=== PATIENT | male | born 1960 | race Caucasian/White ===

== ENCOUNTER 2021-04-24 18:01 | Emergency (ER) | payer MEDICAID ==
[~2021-04-24] VITALS: Ht 170.2 cm; Wt 90.7 kg
--- NOTE | 2021-04-24 18:25 | NUR ---
ELLYN Kyra FROM THE STREET C/O UNWITNESSED SYNCOPAL EPISODE."FOUND HIM IN THE CAR UNRESPONSIVE". NO S/O ANY ACUTE DISTRESS NOTED. DENIES PAIN at this time. PATIENT KEPT COMFORTABLE. SAFETY PRECAUTIONS IN PLACE. WILL CONTINUE TO MONITOR
[2021-04-24] MEDS ORDERED: KETOROLAC TROMETHAMINE INJ 30 MG/ML VIAL IV ONE (18:30)
[2021-04-24] MEDS ORDERED: IV NS 0.9% 1,000 ML BAG IV ONE (18:30)
[2021-04-24] MEDS ORDERED: ACETAMINOPHEN ES 500 MG TABLET PO ONE (18:30)
[2021-04-24] MEDS ORDERED: ONDANSETRON HCL/PF 4 MG/2 ML VIAL IVP ONE (18:30)
[2021-04-24 18:47] LABS: ABG BASE EXCESS 1.9 mmol/L; ABG OXYGEN SATURATION 95.6 % (92.0-98.5); ABG PCO2 43.9 mmHg (35.0-45.0); ABG PH 7.407 (7.350-7.450); ABG PO2 78.1 mmHg (75.0-100.0); AaDO2 84.2 mmHg; MetHb 0.4 % (0.0-1.5); O2Hb 94.3 % (94.0-97.0); SITE, ABG Right Radial; VENT MODE, BG nasal cannula
[2021-04-24 18:56] LABS: BASOPHILS # (AUTO) 0.1 K/uL (0.0-0.2); BASOPHILS % (AUTO) 0.5 % (0.0-2.0); HEMATOCRIT 47 % (39-51); HEMOGLOBIN 15.2 g/dL (13.5-17.5); LYMPHOCYTES # (AUTO) 0.4 K/uL (0.8-4.8); LYMPHOCYTES % (AUTO) 1.6 % (20.0-44.0); MEAN CORPUSCULAR HGB CONC 32 g/dl (31.0-36.0); MEAN CORPUSCULAR VOLUME 87 fL (80-96); MONOCYTES # (AUTO) 0.5 K/uL (0.1-1.30); MONOCYTES % (AUTO) 2.3 % (2.0-12.0); NEUTROPHILS % (AUTO) 95.6 % (43.0-81.0); PLATELET COUNT (AUTO) 281 K/uL (150-450)
[2021-04-24] MEDS ORDERED: NALOXONE HCL 0.4 MG/ML AMPUL IV ONE (19:00)
[2021-04-24] MEDS ORDERED: NALOXONE PREFILLED SYRINGE 2 MG/2 ML SYRINGE ONE (19:03)
[2021-04-24] MEDS ORDERED: KETOROLAC TROMETHAMINE 15 MG/ML VIAL ONE (19:03)
[2021-04-24] MEDS ORDERED: ACETAMINOPHEN ES 500 MG TABLET ONE (19:03)
[2021-04-24] MEDS ORDERED: ONDANSETRON HCL/PF 4 MG/2 ML VIAL ONE (19:07)
[2021-04-24 19:21] LABS: CALCIUM, SERUM 8.8 mg/dL (8.5-10.1); CARBON DIOXIDE 27 mmol/L (21-32); CHLORIDE 104 mmol/L (98-107); GLUCOSE 118 mg/dL (74-106); POTASSIUM 3.8 mmol/L (3.5-5.1); SODIUM SERUM 142 mmol/L (136-145); UREA NITROGEN, BLOOD 14 mg/dL (7-18)
--- NOTE | 2021-04-24 19:24 | NUR ---
BLOOD SUGAR 111
--- NOTE | 2021-04-24 19:30 | NUR ---
URINE COLLECTED FOR [facility]A AT THIS TIME
--- NOTE | 2021-04-24 19:31 | NUR ---
LAB CALLED. LACTIC ACID IS 2.3
[2021-04-24 19:36] LABS: ACETAMINOPHEN < 2 ug/ml (10-30); ALANINE AMINOTRANSFERASE 37 U/L (12-78); ALBUMIN 3.7 g/dL (3.4-5.0); ALCOHOL, BLOOD < 3 mg/dL (0-0); ALKALINE PHOSPHATASE 113 U/L (46-116); ASPARTATE AMINOTRANSFERASE 25 U/L (15-37); BILIRUBIN,DIRECT 0.3 mg/dL (0.0-0.2); TOTAL PROTEIN, SERUM 8.4 g/dL (6.4-8.2)
--- NOTE | 2021-04-24 19:37 | NUR ---
COVID 19 SWAB COLLECTED
[2021-04-24 19:40] LABS: SERUM AMMONIA 25 umol/L (11-32)
[2021-04-24 19:51] LABS: D-DIMER 0.46 mg/L(FEU (0.17-0.50)
[2021-04-24 19:55] LABS: CREATINE KINASE, TOTAL 122 U/L (39-308); FERRITIN 127 ng/mL (8-388)
[2021-04-24 20:00] LABS: C-REACTIVE PROTEIN 8.3 mg/dL (0.0-0.9)
[2021-04-24 20:01] LABS: BILIRUBIN,URINE SMALL (NEGATIVE); COLOR,URINE YELLOW (YELLOW); LEUKOCYTE ESTERASE ,URINE Negative (NEGATIVE); NITRITE, URINE Negative (NEGATIVE); PH,URINE 5.5 (5.0-8.0); PROTEIN,URINE 30 mg/dl (NEGATIVE); UGLUCOSE Negative (NEGATIVE)
[2021-04-24 20:04] LABS: BACTERIA,URINE Rare /HPF (None Seen); RBC,URINE NONE SEEN /HPF (0-2); SQUAMOUS EPITHELIAL CELL,UR Few /HPF (None Seen); WBC,URINE NONE SEEN /HPF (0-3)
--- NOTE | 2021-04-24 20:09 | NUR ---
RAPID INF COLLECTED, SENT TO LAB.
[2021-04-24] MEDS ORDERED: NALO4SPR NS (20:36)
--- NOTE | 2021-04-24 21:00 | NUR ---
IV removed. Catheter intact and site benign. Pressure and 4x4 applied to site. No bleeding noted.
[2021-04-24 21:01] VITALS: BP 146/85
--- NOTE | 2021-04-24 21:01 | NUR ---
Patient discharged to home in stable condition. Written and verbal after care instructions given. Patient verbalizes understanding of instruction and rx. Pt ambulated out of ED. VSS.
== END 2021-04-24 21:01 | disposition home or self-care (01) ==
LOC: ER 19:36
DX: T40.411A Poisoning by fentanyl or fentanyl analogs, accidental (unintentional), initial encounter (principal); T43.621A Poisoning by amphetamines, accidental (unintentional), initial encounter; R40.20 Unspecified coma; Y92.488 Other paved roadways as the place of occurrence of the external cause; I10 Essential (primary) hypertension; J98.11 Atelectasis; Z20.822 Contact with and (suspected) exposure to COVID-19; R00.0 Tachycardia, unspecified; D72.829 Elevated white blood cell count, unspecified
CPT/HCPCS: 36415; 36600; 70450; 71045; 80048; 80076; 80143; 80307; 80320; 81001; 82140; 82550; 82728; 82803; 82962; 83605; 83615; 83880; 84145; 84443; 84484; 85025; 85378; 85385; 85730; 86140; 87040 ×2; 87086; 87426; 87804; 93005; 96374; 96375; 99285; C9803 ×2; J1885; J2310; J2405; U0003; G0480